=== PATIENT | male | born 1970 | race African-American/Black ===

== ENCOUNTER 2017-01-13 10:45 | Emergency (ER) | payer SELFPAY ==
[~2017-01-13] VITALS: Ht 188 cm; Wt 138.0 kg
[2017-01-13] MEDS ORDERED: PREDNISONE 20MG TABLET PO ONE (11:15)
[2017-01-13] MEDS ORDERED: KETOROLAC 60MG/2ML VIAL IM ONE (11:15)
[2017-01-13] MEDS ORDERED: PENICILLIN G BENZATHINE 1,200,000 UNITS/2ML SYR IM ONE (13:30)
[2017-01-13 14:07] VITALS: BP 127/78
== END 2017-01-13 14:09 | disposition home or self-care (01) ==
LOC: ER 11:16
DX: J02.0 Streptococcal pharyngitis (principal); F17.210 Nicotine dependence, cigarettes, uncomplicated; F12.10 Cannabis abuse, uncomplicated
CPT/HCPCS: 71010; 87430; 96372; 99285; J0561; J1885; J7512; Z7610

== ENCOUNTER 2017-05-20 07:13 | Emergency (ER) | payer SELFPAY ==
[~2017-05-20] VITALS: Ht 188 cm; Wt 141.0 kg
[2017-05-20 07:24] VITALS: BP 131/72
[2017-05-20] MEDS ORDERED: KETOROLAC 30MG/ML VIAL IM ONE (07:45)
== END 2017-05-20 07:57 | disposition home or self-care (01) ==
LOC: ER 07:56
DX: J02.0 Streptococcal pharyngitis (principal); F12.10 Cannabis abuse, uncomplicated; F17.200 Nicotine dependence, unspecified, uncomplicated
CPT/HCPCS: 96372; 99283; J1885

== ENCOUNTER 2019-11-30 11:53 | Emergency (ER) | payer SELFPAY ==
[~2019-11-30] VITALS: Ht 188 cm; Wt 147.9 kg
[2019-11-30 17:53] VITALS: BP 140/86
== END 2019-11-30 17:17 | disposition home or self-care (01) ==
LOC: ER 11:53
DX: J06.9 Acute upper respiratory infection, unspecified (principal); F12.10 Cannabis abuse, uncomplicated; F17.200 Nicotine dependence, unspecified, uncomplicated
CPT/HCPCS: 99283